=== PATIENT | female | born 1985 | race Caucasian/White ===

== ENCOUNTER 2023-05-04 15:10 | Emergency (ER) | payer BC, SELFPAY ==
[2023-05-04] VITALS (10 sets, daily range): BP systolic 121–141; BP diastolic 60–87; PULSE 67–89; RESP 14–20; TEMP 37.1–37.3; O2SAT 98–100
--- NOTE | ~2023-05-04 | US_ITS ---
EXAMINATION: US OB <=14 wk fetus w TV DATE: 05/04/2023 19:45 INDICATION: Left adnexal pain during first trimester . TECHNIQUE: Real-time pelvic ultrasound utilizing both a transvaginal and transabdominal probe was pe rformed. The interpreting radiologist was not present for the study. COMPARISON: None. FINDINGS: The uterus measures 7.4 x 3.9 x 4.5 cm. There is an intrauterine gestational sac. A yolk sac and fet al pole are identified. The crown rump length measures 4.5 mm, which correlates with an estimated ges tational age of 6 weeks and 1 days. heart motion is identified measuring 124 beats per minute ( bpm) by M-mode Doppler. There is some refraction artifact extending posteriorly from a secti on scar along the anterior lower uterine segment. The right ovary measures 2.6 x 2.0 x 1.8 cm. Vascular flow identified in the right ovary on color Dop pler. The left ovary is not visualized. There is no free fluid in the pelvis. IMPRESSION: 1. Single living fetus with heart rate of 124 bpm. 2. Gestational age by ultrasound of 6 weeks 1 day(s) +/- 3 day(s) with ultrasound estimated date of delivery (CLAUDIA) of 12/28/2023. Reviewed, dictated and finalized at location [facility] IMPRESSION: 1. Single living fetus with heart rate of 124 bpm. 2. Gestational age by ultrasound of 6 weeks 1 day(s) +/- 3 day(s) with ultraso und estimated date of delivery (CLAUDIA) of 12/28/2023.
[2023-05-04 16:45] LABS: Basophils Percent Auto 0.2 % (0.2-1.2); Eosinophils Percent Auto 0.1 % (0-4.4); Hematocrit 35.2 % (37.0-47.0); Hemoglobin 11.7 g/dL (12.0-15.0); Immature Granulocyte Absolute 0.03 K/mm3 (0.00-0.031); Immature Granulocyte Percent A 0.4 % (0-0.5); Lymphocytes Absolute Auto 0.74 K/mm3 (0.9-3.2); Mean Corpuscular HGB Conc 33.2 g/dl (32-36); Mean Corpuscular Hemoglobin 29.4 pg (26-34); Mean Corpuscular Volume 88.4 fl (80-100); Mean Platelet Volume 9.7 fl (7.4-10.4); Monocytes Absolute Auto 0.5 K/mm3 (0.1-0.6); Monocytes Percent Auto 5.8 % (2.6-8.5); Neutrophils Percent Auto 84.5 % (45.5-73.1); Platelet Count Result 264 k/mm3 (150-375); Red Blood Count 3.98 M/mm3 (4.2-5.4); White Blood Count 8.3 K/mm3 (4.5-10.0)
[2023-05-04 16:56] LABS: Alanine Aminotransferase 34 U/L (6-35); Albumin Level 3.9 g/dL (3.5-5.1); Alkaline Phosphatase 64 U/L (38-126); Anion Gap 9 mmol/L (8-16); Aspartate Amino Transferase 28 U/L (14-36); Bilirubin,Total 0.4 mg/dL (0.2-1.3); Blood Urea Nitrogen 11 mg/dL (7-17); Calcium 9.1 mg/dL (8.4-10.2); Carbon Dioxide 21 mmol/L (22-30); Chloride 104 mmol/L (98-107); Estimated CRCL calculation 139 ml/min; Estimated Glomerular Filt Rate > 60; Glucose 95 mg/dL (65-110); Lipase 50 U/L (23-300); Potassium 3.6 mmol/L (3.4-5.0); Sodium 134 mmol/L (137-145)
[2023-05-04 16:56] LABS: Appearance Urine Clear (Clear); Bilirubin Urine Negative (Negative); Blood Urine Negative (Negative); Color Urine Yellow (Yellow); Glucose Urine UA Negative (Negative); Ketones Urine Negative (Negative); Leukocyte Esterase Ur Negative LEU/UL (Negative); Nitrate Urine Negative (Negative); Protein Urine Negative (Negative); Specific Grav Ur 1.003 (1.001-1.035); Urobilinogen Urine 0.2 mg/dL (<2.0)
[2023-05-04 17:08] LABS: Add Urine Microscopic? NO
--- NOTE | 2023-05-04 19:45 | ED.GENADULT ---
HPI - General Adult General Chief complaint: Abdominal Pain Stated complaint: abdominal & back pain Time Seen by Provider: 05/04/23 15:43 History of Present Illness HPI narrative: patient is a 37-year-old female who presents ER with reports of body aches and abdominal pain. Patient tested positive today for COVID after she began having fevers and feeling unwell. She reports 4 days ago she took a positive test on her last menstrual period was on 03/23/23. No vaginal bleeding or vaginal discharge. No urinary frequency urgency or dysuria. She has mild nausea. No emesis. Reports sinus congestion sore throat. No cough. . Related Data Allergies Allergy/AdvReac Type Severity Reaction Status Date / Time Penicillins Allergy Anaphylactic Verified 05/04/23 15:13 Shock Sulfa (Sulfonamide Allergy Anaphylactic Verified 05/04/23 15:13 Antibiotics) Shock Review of Systems Review of Systems: All systems reviewed & are unremarkable except as noted in HPI and below Constitutional: Constitutional: Reports chills, Reports fatigue and Reports fever(s) ENT: Reports nasal congestion and Reports sore throat Cardiovascular: Cardiovascular: Reports no additional cardiovascular complaints Respiratory: Respiratory: Reports no additional respiratory complaints Gastrointestinal: Gastrointestinal: Reports abdominal pain, Reports nausea and Denies vomiting Genitourinary: Genitourinary: Reports no additional female genitourinary complaints Exam Narrative: GENERAL: Fatigued-appearing, well-nourished, and in no acute distress. HEAD: Normocephalic, atraumatic. ENT: Mucous membranes moist. NECK: Supple. CHEST: Clear to auscultation. No respiratory distress. HEART: Regular rate and rhythm. Normal peripheral pulses. ABDOMEN: Soft, mildly tender to palpation left adnexal region, nondistended. EXTREMITIES: Normal range of motion. No edema. SKIN: Warm, dry, no rash. NEURO: Alert and oriented x3. PSYCH: Normal mood and affect. Course Course Emergency Course: Patient will get 1L of fluid for hydration. Lab work unremarkable. Will start Paxlovid and antiemetics for home. No ectopic. Vital Signs Vital signs: Vital Signs Temperature 98.7 F 05/04/23 15:25 Pulse Rate 89 05/04/23 15:25 Respiratory Rate 20 05/04/23 15:25 Blood Pressure 123/69 05/04/23 15:25 Pulse Oximetry 98 05/04/23 15:25 Oxygen Delivery Room Air 05/04/23 15:25 Temperature 98.7 F 05/04/23 15:25 Pulse Rate 73 05/04/23 17:31 Respiratory Rate 16 05/04/23 17:31 Blood Pressure 132/77 05/04/23 17:31 Pulse Oximetry 100 05/04/23 17:31 Oxygen Delivery Room Air 05/04/23 15:25 Medical Decision Making Vital Signs Vital Signs: Vital Signs Temperature 98.7 F 05/04/23 15:25 Pulse Rate 89 05/04/23 15:25 Respiratory Rate 20 05/04/23 15:25 Blood Pressure 123/69 05/04/23 15:25 Pulse Oximetry 98 05/04/23 15:25 Oxygen Delivery Room Air 05/04/23 15:25 Temperature 98.7 F 05/04/23 15:25 Pulse Rate 73 05/04/23 17:31 Respiratory Rate 16 05/04/23 17:31 Blood Pressure 132/77 05/04/23 17:31 Pulse Oximetry 100 05/04/23 17:31 Oxygen Delivery Room Air 05/04/23 15:25 Lab Data 05/04/23 16:31 05/04/23 16:31 Labs: Lab Results 05/04/23 05/04/23 Range/Units 16:31 16:44 WBC 8.3 (4.5-10.0) K/mm3 RBC 3.98 L (4.2-5.4) M/mm3 Hgb 11.7 L (12.0-15.0) g/dL Hct 35.2 L (37.0-47.0) % MCV 88.4 (80-100) fl MCH 29.4 (26-34) pg MCHC 33.2 (32-36) g/dl RDW 13.0 (11.5-14.5) % Plt Count 264 (150-375) k/mm3 MPV 9.7 (7.4-10.4) fl Immature Gran % (Auto) 0.4 (0-0.5) % Neut % (Auto) 84.5 H (45.5-73.1) % Lymph % (Auto) 9.0 L (18.3-44.2) % [place] % (Auto) 5.8 (2.6-8.5) % Eos % (Auto) 0.1 (0-4.4) % Baso % (Auto) 0.2 (0.2-1.2) % Lymph # (Auto) 0.74 L (0.9-3.2) K/mm3 [place] # (Auto) 0.5 (0.1-0.
[2023-05-04] MEDS: SODIUM CHLORIDE 0.9% IV 1,000 ML 999 ML IV CONT (20:26)
[2023-05-04] MEDS: ACETAMINOPHEN 325 MG TABLET 650 MG PO (20:31)
== END 2023-05-04 21:13 | disposition home or self-care (01) ==
PROVIDERS: Emergency Provider Emergency Medicine
DX: O98.511 Other viral diseases complicating pregnancy, first trimester (principal); U07.1 COVID-19; Z3A.01 Less than 8 weeks gestation of pregnancy
CPT/HCPCS: 36415; 76801; 76817; 80053; 81003; 81025; 83690; 84702; 85025; 96360; 99284; A9270; J7030

== ENCOUNTER 2023-10-20 07:52 | Observation (INO) | payer BC, SELFPAY ==
[2023-10-20 08:43] VITALS: BP 140/81; PULSE 104
[2023-10-20 08:44] VITALS: RESP 18; TEMP 37.1
[2023-10-20 08:53] VITALS: BMI 38.2
--- NOTE | 2023-10-20 08:53 | OBADM ---
This patient, Lise Calderon, admitted to the OB room OB Post 116 for observation. Patient/family oriented to hospital policies and general routines including ID bracelet, bed and alarms, visiting hours, pain management, procedures, bathroom and other care routines, personal items, smoking policy, room service/diet, and visiting hours. Patient/Family are encouraged to report perceived risks to care and to ask questions if they do not understand what they are told or what they should do.
[2023-10-20 08:58] LABS: Basophils Percent Auto 0.2 % (0.2-1.2); Eosinophils Percent Auto 0.1 % (0-4.4); Hematocrit 31.8 % (37.0-47.0); Hemoglobin 10.6 g/dL (12.0-15.0); Immature Granulocyte Absolute 0.07 K/mm3 (0.00-0.031); Immature Granulocyte Percent A 0.7 % (0-0.5); Lymphocytes Absolute Auto 0.84 K/mm3 (0.9-3.2); Lymphocytes Percent Auto 8.1 % (18.3-44.2); Mean Corpuscular HGB Conc 33.3 g/dl (32-36); Mean Corpuscular Hemoglobin 29.4 pg (26-34); Mean Corpuscular Volume 88.1 fl (80-100); Mean Platelet Volume 9.2 fl (7.4-10.4); Monocytes Absolute Auto 0.5 K/mm3 (0.1-0.6); Monocytes Percent Auto 5.2 % (2.6-8.5); Neutrophils Absolute Auto 8.9 K/mm3 (1.3-6.7); Neutrophils Percent Auto 85.7 % (45.5-73.1); Platelet Count Result 213 k/mm3 (150-375); Red Blood Count 3.61 M/mm3 (4.2-5.4); Red Cell Distribution Width 14.9 % (11.5-14.5); White Blood Count 10.4 K/mm3 (4.5-10.0)
[2023-10-20 09:00] VITALS: BP 126/81; PULSE 100
[2023-10-20 09:02] VITALS: BP 126/81; PULSE 100
[2023-10-20 09:12] VITALS: PULSE 98; O2SAT 99
[2023-10-20 09:25] LABS: Strep Group A RT-PCR NOT DETECTED (Negative)
[2023-10-20 09:34] LABS: Influenza A QL RT-PCR Negative (Negative); Influenza B QL RT-PCR Negative (Negative); RSV RNA, RT-PCR Negative (Negative); SARS-CoV-2 RNA PCR Positive (Negative)
--- NOTE | 2023-10-20 09:41 | PC.NURSE ---
Pepe Meyer CNM informed pt is positive for COVID. Reviewed CBC results. Informed NST is reactive. OK to discharge to home.
--- NOTE | 2023-10-23 09:13 | P.PNOB_ITS ---
OB - Triage/Final Diagnosis Visit Information Date of evaluation: 10/20/23 Reason for evaluation: other (sore throat) Comments/Additional reasons for admission: I have assessed the risk for this patient, Lise Calderon, and determined that she would benefit from observation care. Evaluation Laboratory results: Laboratory Tests 10/20/23 08:32 WBC 10.4 H RBC 3.61 L Hgb 10.6 L Hct 31.8 L MCV 88.1 MCH 29.4 MCHC 33.3 RDW 14.9 H Plt Count 213 MPV 9.2 Immature Gran % (Auto) 0.7 H Neut % (Auto) 85.7 H Lymph % (Auto) 8.1 L [place] % (Auto) 5.2 Eos % (Auto) 0.1 Baso % (Auto) 0.2 Lymph # (Auto) 0.84 L [place] # (Auto) 0.5 Eos # (Auto) 0.0 Baso # (Auto) 0.0 Abs Immat Gran (auto) 0.07 H Absolute Neuts (auto) 8.9 H Absolute Nucleated RBC 0.000 Nucleated RBC % 0.0 Influenza A (RT-PCR) Negative Influenza B (RT-PCR) Negative RSV (RT-PCR) Negative SARS-CoV-2 RNA (RT-PCR) Positive A Group A Strep (PCR) Not detected
== END 2023-10-20 10:49 | disposition home or self-care (01) ==
PROVIDERS: Advanced Practice Midwife; Admitting Provider Obstetrics & Gynecology; PCP Family Medicine; Visit Provider Obstetrics & Gynecology
DX: O26.893 Other specified pregnancy related conditions, third trimester (principal); J02.9 Acute pharyngitis, unspecified; Z3A.30 30 weeks gestation of pregnancy; Z20.822 Contact with and (suspected) exposure to COVID-19
CPT/HCPCS: 36415; 85025; 87637; 87651; G0378; G0379

== ENCOUNTER 2023-11-06 05:30 | Observation (INO) | payer BC, SELFPAY ==
[2023-11-06 06:00] VITALS: BP 150/88; PULSE 107
--- NOTE | 2023-11-06 06:00 | OBADM ---
This patient, Lise Calderon, admitted to the OB room OB Post 115 for observation. Patient/family oriented to hospital policies and general routines including ID bracelet, bed and alarms, visiting hours, pain management, procedures, bathroom and other care routines, personal items, smoking policy, room service/diet, and visiting hours. Patient/Family are encouraged to report perceived risks to care and to ask questions if they do not understand what they are told or what they should do.
[2023-11-06 06:21] VITALS: BP 133/75; PULSE 97
[2023-11-06 06:31] VITALS: BP 129/84; PULSE 87
[2023-11-06 07:00] VITALS: BP 133/82; PULSE 81
[2023-11-06 07:05] LABS: Add Urine Microscopic? YES; Appearance Urine Clear (Clear); Bacteria Urine None Seen /hpf; Bilirubin Urine Negative (Negative); Blood Urine Negative (Negative); Color Urine Yellow (Yellow); Glucose Urine UA Negative (Negative); Ketones Urine 1+ mg/dL (Negative); Leukocyte Esterase Ur Trace LEU/UL (Negative); Need Manual Microscopic Reviewed; Nitrate Urine Negative (Negative); Non Pathogenic Casts 0-2; Protein Urine Negative (Negative); RBC Urine 0-2 /hpf (0-2); Specific Grav Ur 1.007 (1.001-1.035); Squamous Epithelial Cell Urine Occasional /hpf (Few); Urobilinogen Urine 0.2 mg/dL (<2.0); WBC Urine 0-5 /hpf (0-3)
[2023-11-06 07:47] VITALS: BMI 36.3
--- NOTE | 2023-11-29 21:45 | PM.OBTRLD ---
OB - Triage/Final Diagnosis Visit Information Comments/Additional reasons for admission: I have assessed the risk for this patient, Lise Calderon, and determined that she would benefit from observation care. Evaluation Laboratory results: Laboratory Tests 11/06/23 06:26 Urine Color Yellow Urine Appearance Clear Urine pH 6.0 Ur Specific [place] 1.007 Urine Protein Negative Urine Glucose (UA) Negative Urine Ketones 1+ H Ur Blood (Man) Negative Urine Nitrate Negative Urine Bilirubin Negative Urine Urobilinogen 0.2 Add Ur Microanalysis Reviewed Leukocyte Esterase Rfl Trace H Urine RBC 0-2 Urine WBC 0-5 Ur Squamous Epith Cells Occasional Urine Bacteria None seen Urine Casts 0-2 Final Diagnosis (1) False labor: Code(s): O47.9 - False labor, unspecified Status: Acute
--- NOTE | 2023-11-29 21:50 | PM.OBTRLD ---
OB - Triage/Final Diagnosis Visit Information Comments/Additional reasons for admission: I have assessed the risk for this patient, Lise Calderon, and determined that she would benefit from observation care. Evaluation Laboratory results: Laboratory Tests 11/06/23 06:26 Urine Color Yellow Urine Appearance Clear Urine pH 6.0 Ur Specific [place] 1.007 Urine Protein Negative Urine Glucose (UA) Negative Urine Ketones 1+ H Ur Blood (Man) Negative Urine Nitrate Negative Urine Bilirubin Negative Urine Urobilinogen 0.2 Add Ur Microanalysis Reviewed Leukocyte Esterase Rfl Trace H Urine RBC 0-2 Urine WBC 0-5 Ur Squamous Epith Cells Occasional Urine Bacteria None seen Urine Casts 0-2 Final Diagnosis (1) False labor: Code(s): O47.9 - False labor, unspecified Status: Acute
== END 2023-11-06 08:03 | disposition home or self-care (01) ==
PROVIDERS: Admitting Provider Obstetrics & Gynecology; Visit Provider Obstetrics & Gynecology
DX: O47.9 False labor, unspecified (principal)
CPT/HCPCS: 81001; G0378; G0379

== ENCOUNTER 2023-11-07 00:49 | Observation (INO) | payer BC, SELFPAY ==
[2023-11-07] VITALS (30 sets, daily range): BP systolic 123–127; BP diastolic 66–76; PULSE 73–102; O2SAT 93–100; BMI 36.3
--- NOTE | 2023-11-07 00:49 | OBADM ---
This patient, iLse Calderon, admitted to the OB room OB Post 117 for observation. Patient/family oriented to hospital policies and general routines including ID bracelet, bed and alarms, visiting hours, pain management, procedures, bathroom and other care routines, personal items, smoking policy, room service/diet, and visiting hours. Patient/Family are encouraged to report perceived risks to care and to ask questions if they do not understand what they are told or what they should do.
[2023-11-07 01:23] LABS: Add Urine Microscopic? YES; Appearance Urine Clear (Clear); Bacteria Urine None Seen /hpf; Bilirubin Urine Negative (Negative); Blood Urine Negative (Negative); Color Urine Yellow (Yellow); Glucose Urine UA Negative (Negative); Ketones Urine Negative (Negative); Leukocyte Esterase Ur Trace LEU/UL (Negative); Nitrate Urine Negative (Negative); Non Pathogenic Casts 0-2; Protein Urine Negative (Negative); RBC Urine 0-2 /hpf (0-2); Specific Grav Ur 1.007 (1.001-1.035); Squamous Epithelial Cell Urine None Seen /hpf (Few); Urobilinogen Urine 0.2 mg/dL (<2.0); WBC Urine 0-5 /hpf (0-3); pH Urine 6.5 (5.0-9.0)
[2023-11-07 01:25] LABS: Glucose Point of Care 83 mg/dl (65-105)
[2023-11-07 02:12] LABS: OBXCEM ROM Plus Negative
[2023-11-07] MEDS: TERBUTALINE SULFATE 1 MG/ML VIAL 0.25 MG SUB-Q (02:31)
--- NOTE | 2023-12-01 11:59 | P.PNOB_ITS ---
OB - Triage/Final Diagnosis Visit Information Comments/Additional reasons for admission: I have assessed the risk for this patient, Lise Calderon, and determined that she would benefit from observation care. Evaluation Laboratory results: Laboratory Tests 11/07/23 11/07/23 11/07/23 01:02 01:18 02:05 POC Capillary Glucose 83 Urine Color Yellow Urine Appearance Clear Urine pH 6.5 Ur Specific [place] 1.007 Urine Protein Negative Urine Glucose (UA) Negative Urine Ketones Negative Ur Blood (Man) Negative Urine Nitrate Negative Urine Bilirubin Negative Urine Urobilinogen 0.2 Ur Leukocyte Esterase Trace H Urine RBC 0-2 Urine WBC 0-5 Ur Squamous Epith Cells None seen Urine Bacteria None seen Urine Casts 0-2 Membranes Rupture Rom plus negative Membranes Rup Com Yes Final Diagnosis (1) False labor: Code(s): O47.9 - False labor, unspecified Status: Acute
== END 2023-11-07 03:30 ==
PROVIDERS: Admitting Provider Obstetrics & Gynecology; Visit Provider Obstetrics & Gynecology
DX: O47.03 False labor before 37 completed weeks of gestation, third trimester (principal); Z3A.32 32 weeks gestation of pregnancy
CPT/HCPCS: 81001; 82948; 84112; 87086; 87088; 96372; G0378; G0379; J3105

== ENCOUNTER 2023-11-25 07:54 | Outpatient (CLI) | payer BC, SELFPAY ==
[2023-11-25] VITALS (28 sets, daily range): BP systolic 115–145; BP diastolic 66–84; PULSE 76–93; O2SAT 94–98; BMI 36.0
[2023-11-25 08:56] LABS: Basophils Percent Auto 0.3 % (0.2-1.2); Eosinophils Percent Auto 0.3 % (0-4.4); Hematocrit 34.8 % (37.0-47.0); Hemoglobin 11.4 g/dL (12.0-15.0); Immature Granulocyte Absolute 0.03 K/mm3 (0.00-0.031); Immature Granulocyte Percent A 0.3 % (0-0.5); Lymphocytes Absolute Auto 1.53 K/mm3 (0.9-3.2); Lymphocytes Percent Auto 14.1 % (18.3-44.2); Mean Corpuscular HGB Conc 32.8 g/dl (32-36); Mean Corpuscular Hemoglobin 29.5 pg (26-34); Mean Corpuscular Volume 89.9 fl (80-100); Mean Platelet Volume 9.5 fl (7.4-10.4); Monocytes Absolute Auto 0.5 K/mm3 (0.1-0.6); Monocytes Percent Auto 4.8 % (2.6-8.5); Neutrophils Absolute Auto 8.7 K/mm3 (1.3-6.7); Neutrophils Percent Auto 80.2 % (45.5-73.1); Platelet Count Result 230 k/mm3 (150-375); Red Blood Count 3.87 M/mm3 (4.2-5.4); Red Cell Distribution Width 14.9 % (11.5-14.5); White Blood Count 10.8 K/mm3 (4.5-10.0)
[2023-11-25 09:04] LABS: Creatinine Urine 22.1 mg/dL; Total Protein Urine Random 14 mg/dL; Ur Ttl Prot Creatinine Ratio 0.63 mg/mg (0-0.20)
[2023-11-25 09:05] LABS: Alanine Aminotransferase 19 U/L (6-35); Albumin Level 3.3 g/dL (3.5-5.1); Alkaline Phosphatase 111 U/L (38-126); Anion Gap 6 mmol/L (4-12); Aspartate Amino Transferase 19 U/L (14-36); Bilirubin,Total 0.1 mg/dL (0.2-1.3); Blood Urea Nitrogen 15 mg/dL (7-17); Carbon Dioxide 21 mmol/L (22-30); Chloride 106 mmol/L (98-107); Estimated Glomerular Filt Rate > 60; Glucose 119 mg/dL (65-110); Potassium 3.7 mmol/L (3.4-5.0); Sodium 133 mmol/L (137-145); Uric Acid 3.5 mg/dL (2.5-7.5)
--- NOTE | 2023-11-25 09:05 | PC.NURSE ---
Dr. Herzog informed of this 35 wk with hx of previous C/S x's 2 and gest. hypertension and GDM here with c/o headache that she has had for most of the week, blurred vision and reported BP of 140/100 from home, States she felt her heart racing throughout the night. Discussed BP's here. Order received for pain meds while waiting for labs to come back.
[2023-11-25 09:34] LABS: Add Urine Microscopic? YES; Appearance Urine Clear (Clear); Bacteria Urine None Seen /hpf; Bilirubin Urine Negative (Negative); Blood Urine Negative (Negative); Color Urine Yellow (Yellow); Glucose Urine UA Negative (Negative); Ketones Urine Trace mg/dL (Negative); Leukocyte Esterase Ur Trace LEU/UL (Negative); Need Manual Microscopic Reviewed; Nitrate Urine Negative (Negative); Non Pathogenic Casts 0-2; Protein Urine Negative (Negative); RBC Urine 0-2 /hpf (0-2); Specific Grav Ur 1.007 (1.001-1.035); Squamous Epithelial Cell Urine Occasional /hpf (Few); Urobilinogen Urine 0.2 mg/dL (<2.0); WBC Urine 0-5 /hpf (0-3); pH Urine 6.5 (5.0-9.0)
[2023-11-25] MEDS: ACETAMINOPHEN 500 MG TABLET 1000 MG PO (09:53)
--- NOTE | 2023-11-25 09:53 | PC.NURSE ---
Pt states she had a nap and her headache is down to a 2 and the blurred vision has resolved. Pt given menu and encouraged to order.
[2023-11-25] MEDS: CAFFEINE 200 MG TABLET PO (09:55)
--- NOTE | 2023-11-25 10:40 | PC.NURSE ---
Pepe Meyer CNM on unit and updated on BP's, lab results including total protein creatinine ratio of 0.63 and negative for protein on UA. Order received for pt's insulin to give when her tray comes. Pt may go home after she eats.
--- NOTE | 2023-11-25 11:35 | PC.NURSE ---
Pt's tray still hasn't arrived. Called dietary. Tray was already suppose to have been delivered. Tray reordered. Gave pt the option of going home to take her insulin and eat at home. Pt wants to eat before leaving. Pt asked about getting the Flu, Tdap, and RSV vaccines. Informed I could get an order to give her the Tdap, but she will need to go to her pharmacy for the RSV and flu vaccines.
--- NOTE | 2023-11-25 12:05 | PC.NURSE ---
Pt's food still not here. Pt agreeable to a sandwich from the refrigerator.
[2023-11-25] MEDS: INSULIN HUMAN NPH (*BKC) 100 UNITS/ML SUB-Q (12:08)
[2023-11-25] MEDS: TETANUS,DIPHTHERIA,AC PERTUSSIS ADULT (0.5 ML) BOOSTRIX IM (12:10)
--- NOTE | 2023-11-25 12:22 | PC.NURSE ---
Pt's lunch tray arrived. Pt will eat and stop out at desk before going home.
== END 2023-11-25 12:42 | disposition home or self-care (01) ==
LOC: ANHOBOP 07:57 → ANHOBPP 07:57
PROVIDERS: Obstetrics & Gynecology; Visit Provider Obstetrics & Gynecology
DX: O13.9 Gestational [pregnancy-induced] hypertension without significant proteinuria, unspecified trimester (principal); Z3A.00 Weeks of gestation of pregnancy not specified
CPT/HCPCS: 36415; 59025; 80053; 81001; 82570; 84156; 84550; 85025; 90471; 90715; 99199; A9270; J1815

== ENCOUNTER 2023-12-01 13:20 | Outpatient (CLI) | payer BC, SELFPAY ==
[2023-12-01] VITALS (10 sets, daily range): BP systolic 123–145; BP diastolic 77–91; PULSE 70–87; RESP 18–20; TEMP 36.6–36.7; BMI 36.5
[2023-12-01] MEDS: CAFFEINE 200 MG TABLET PO (14:46)
[2023-12-01 14:55] LABS: Basophils Percent Auto 0.2 % (0.2-1.2); Eosinophils Percent Auto 0.3 % (0-4.4); Hematocrit 33.8 % (37.0-47.0); Hemoglobin 11.4 g/dL (12.0-15.0); Immature Granulocyte Absolute 0.05 K/mm3 (0.00-0.031); Immature Granulocyte Percent A 0.6 % (0-0.5); Lymphocytes Percent Auto 17.1 % (18.3-44.2); Mean Corpuscular HGB Conc 33.7 g/dl (32-36); Mean Corpuscular Volume 88.9 fl (80-100); Mean Platelet Volume 9.5 fl (7.4-10.4); Monocytes Absolute Auto 0.5 K/mm3 (0.1-0.6); Monocytes Percent Auto 5.1 % (2.6-8.5); Neutrophils Absolute Auto 6.7 K/mm3 (1.3-6.7); Neutrophils Percent Auto 76.7 % (45.5-73.1); Platelet Count Result 230 k/mm3 (150-375); Red Cell Distribution Width 14.7 % (11.5-14.5); White Blood Count 8.8 K/mm3 (4.5-10.0)
[2023-12-01] MEDS: ACETAMINOPHEN 500 MG TABLET 1000 MG PO (15:01)
[2023-12-01 15:04] LABS: Creatinine Urine 33.5 mg/dL; Total Protein Urine Random 9 mg/dL; Ur Ttl Prot Creatinine Ratio 0.27 mg/mg (0-0.20)
[2023-12-01 15:16] LABS: Add Urine Microscopic? YES; Alanine Aminotransferase 19 U/L (6-35); Albumin Level 3.5 g/dL (3.5-5.1); Alkaline Phosphatase 133 U/L (38-126); Anion Gap 11 mmol/L (4-12); Appearance Urine Clear (Clear); Aspartate Amino Transferase 21 U/L (14-36); Bacteria Urine None Seen /hpf; Bilirubin Urine Negative (Negative); Bilirubin,Total 0.2 mg/dL (0.2-1.3); Blood Urea Nitrogen 12 mg/dL (7-17); Blood Urine Negative (Negative); Calcium 8.9 mg/dL (8.4-10.2); Carbon Dioxide 17 mmol/L (22-30); Chloride 106 mmol/L (98-107); Color Urine Yellow (Yellow); Estimated Glomerular Filt Rate > 60; Glucose 78 mg/dL (65-110); Glucose Urine UA Negative (Negative); Ketones Urine 1+ mg/dL (Negative); Leukocyte Esterase Ur Trace LEU/UL (Negative); Nitrate Urine Negative (Negative); Non Pathogenic Casts 0-2; Protein Urine Negative (Negative); RBC Urine 0-2 /hpf (0-2); Sodium 134 mmol/L (137-145); Specific Grav Ur 1.008 (1.001-1.035); Squamous Epithelial Cell Urine Occasional /hpf (Few); Uric Acid 3.8 mg/dL (2.5-7.5); Urobilinogen Urine 0.2 mg/dL (<2.0); WBC Urine 0-5 /hpf (0-3); pH Urine 6.5 (5.0-9.0)
== END 2023-12-01 16:27 | disposition home or self-care (01) ==
LOC: ANHOBOP 14:07 → ANHLDR 14:08
PROVIDERS: Visit Provider Obstetrics & Gynecology
DX: O13.9 Gestational [pregnancy-induced] hypertension without significant proteinuria, unspecified trimester (principal)
CPT/HCPCS: 36415; 59025; 80053; 81001; 82570; 84156; 84550; 85025; 99199; A9270

== ENCOUNTER 2023-12-06 15:58 | Outpatient (CLI) | payer BC, SELFPAY ==
[2023-12-06 16:25] LABS: Hematocrit 35.7 % (37.0-47.0); Hemoglobin 12.1 g/dL (12.0-15.0); Mean Corpuscular HGB Conc 33.9 g/dl (32-36); Mean Corpuscular Hemoglobin 30.3 pg (26-34); Mean Corpuscular Volume 89.3 fl (80-100); Mean Platelet Volume 9.3 fl (7.4-10.4); Platelet Count Result 236 k/mm3 (150-375); Red Cell Distribution Width 14.8 % (11.5-14.5); White Blood Count 10.4 K/mm3 (4.5-10.0)
[2023-12-06 17:23] LABS: HIV 1/2 Ab P24 Ag Result Negative (Negative)
[2023-12-06 18:32] LABS: Rapid Plasma Reagin Non-Reactive (NonReactive)
== END 2023-12-06 15:59 | disposition home or self-care (01) ==
LOC: ANHLAB 16:03
PROVIDERS: Visit Provider Obstetrics & Gynecology
DX: Z01.818 Encounter for other preprocedural examination (principal)
CPT/HCPCS: 36415; 85027; 86592; 86703; 86850; 86900; 86901; G0432

== ENCOUNTER 2023-12-07 10:03 | Inpatient (IN) | payer BC, SELFPAY ==
[2023-12-07] VITALS (70 sets, daily range): BP systolic 98–164; BP diastolic 58–98; PULSE 31–98; RESP 14–18; TEMP 36.1–36.9; O2SAT 97–100; BMI 35.3
[2023-12-07] MEDS: ACETAMINOPHEN 500 MG TABLET 1000 MG PO (10:43)
[2023-12-07] MEDS: LACTATED RINGERS 1,000 ML 125 ML IV CONT (11:06)
--- NOTE | 2023-12-07 11:33 | LDADM ---
This patient, Lise Calderon, was admitted to Labor/Delivery 119 on 12/07/23 at 10:03. Plans for repeat section with bilateral salpingectomy were discussed with patient. Patient/family oriented to hospital policies and general routines including ID bracelet, bed and alarms, visiting hours, pain management, procedures, bathroom and other care routines, personal items, smoking policy, room service/diet and guest tray routines, security routines, and visiting hours. Patient/Family are encouraged to report perceived risks to care and to ask questions if they do not understand what they are told or what they should do. See OBIX for further documentation.
[2023-12-07] MEDS: ONDANSETRON INJ 4 MG/2 ML VIAL IV PUSH (11:41)
[2023-12-07] MEDS: FAMOTIDINE 20 MG/2 ML VIAL IV PUSH (11:41)
--- NOTE | 2023-12-07 11:42 | PM.IMHP ---
H&P: HPI History of Present Illness Date/Time: 12/07/23 11:42 Chief Complaint: Term Narrative: 38-year-old multiparous female at term with previous deliveries and unwanted fertility. We agreed to perform repeat delivery and bilateral salpingectomy. The patient understands the details of the procedure. The procedure has been explained in detail. She understands the risks. She understands that injuries may occur that result in hospitalization, more surgery, and severe illness. She understands risk of hemorrhage and infection. She denies any chest pain or shortness of breath. She denies any nausea, vomiting, fever, chills. Review of Systems Review of Systems: All systems reviewed & are unremarkable except as noted in HPI and below Constitutional: Constitutional: Denies chills, Denies fatigue, Denies fever(s) and Denies weakness Eyes: Eyes: Denies blurry vision, Denies change in vision, Denies loss of peripheral vision, Denies loss of vision, Denies other visual disturbances and Denies eye pain ENT: Denies vertigo, Denies dizziness, Denies hearing loss, Denies mouth pain, Denies nasal obstruction, Denies neck mass and Denies neck pain Cardiovascular: Cardiovascular: Denies chest pain, Denies diaphoresis, Denies syncope, Denies leg edema and Denies dyspnea Respiratory: Respiratory: Denies chest congestion, Denies cough, Denies hemoptysis, Denies dyspnea and Denies wheezing Gastrointestinal: Gastrointestinal: Denies abdominal pain, Denies constipation, Denies diarrhea, Denies nausea and Denies vomiting Genitourinary: Genitourinary: Denies hematuria, Denies change in libido, Denies nocturia, Denies genital lesions, Denies flank pain and Denies urinary urgency Musculoskeletal: Musculoskeletal: Denies abnormal gait, Denies back pain, Denies myalgias, Denies arthralgias, Denies joint swelling, Denies muscle weakness and Denies neck pain Integumentary/Breasts: Skin/Breast: Denies swelling, Denies breast pain, Denies breast mass, Denies dry skin, Denies nipple discharge, Denies unusual bruising and Denies jaundice Neurologic: Denies Neuro-related abnormal movements, Denies Abnormal speech present, Denies abnormal gait, Denies behavioral changes, Denies confusion, Denies vertigo, Denies dizziness, Denies syncope, Denies loss of vision, Denies memory loss, Denies convulsions and Denies weakness Psychiatric: Psychiatric: Denies abnormal sleep pattern, Denies behavioral changes, Denies change in libido, Denies confusion, Denies depression, Denies anhedonia and Denies memory loss Endocrine: Endocrine: Reports no additional endocrine complaints, Denies change in libido and Denies fatigue Hematologic/Lymphatic: Hematologic/Lymphatic: Reports no additional hematologic/lymphatic complaints Allergic/Immunologic: Allergic/Immunologic: Reports no additional allergic/immunologic complaints and Denies wheezing [facility] Family History Family History (Updated 12/01/23 @ 16:34 by Cora Ibarra RN) Mother Diabetes mellitus Father Parkinsons disease Hypertension Grandparent Malignant neoplasm of prostate Grandparent Alzheimer dementia Grandparent Parkinsons disease Sibling ADHD Social History Social History Smoking status: Never smoker Substance use: never Do You Feel Safe in your Home?: Yes Lack of Transportation: No Lack of Food: Sometimes True Current Housing: I Have Housing Concerned About Future Housing: No Difficulty Paying Gas/Electric Bills: No Difficulty Paying for Meds: YES Currently Unemployed: No Education: Bachelor's Degree Difficulty w/ Childcare or Family Care: No Spiritual care concerns: No Meds Home Medications and Allergies Home Medications Medication Instructions Recorded Confirmed Type vit no.95-ferrous 1 tablet PO DAILY 10/20/23 12/07/23 History fumarate 28 mg-folic acid 800 mcg tablet () sertraline 100 mg tablet 100 mg
--- NOTE | 2023-12-07 11:44 | WPDHPUPDATE1 ---
History and Physical Update Update Date/Time: 12/07/23 11:44 History and Physical has been reviewed, including an updated exam of the patient. There are NO changes in the patient's condition. Risks, benefits, and alternatives have been discussed and questions answered. Patient agrees to proceed with procedure.
--- NOTE | 2023-12-07 11:49 | WPDANESEPPF ---
Anes - Initial Pre Proc Eval Procedure: Operation Date: 12/07/23 12:00 Proposed Procedures p Repeat Section - Bobby Herzog MD Date/Time: 12/07/23 11:49 Surgeon: Marcelino Tate MD Pre Op Diagnosis: Repeat Patient Data Age: 38 Gender: F Height: 1.6 m Weight: 90.4 kg Last Vital Signs Pulse 81 12/07/23 11:10 BP 136/83 12/07/23 11:10 O2 Del Method Room Air 12/07/23 10:56 Allergies Allergy/AdvReac Type Severity Reaction Status Date / Time amoxicillin Allergy Anaphylactic Verified 12/01/23 16:32 Shock azithromycin Allergy Swelling Verified 10/20/23 08:57 of Lip/Tongue/Throat hydrocortisone Allergy Hives Verified 12/01/23 16:32 levofloxacin Allergy Hives Verified 12/01/23 16:32 Penicillins Allergy Anaphylactic Verified 05/04/23 15:13 Shock prednisone Allergy Swelling Verified 10/20/23 08:57 of Lip/Tongue/Throat Sulfa (Sulfonamide Allergy Anaphylactic Verified 05/04/23 15:13 Antibiotics) Shock Home Medications Medication Instructions Recorded Confirmed Type vit no.95-ferrous 1 tablet PO DAILY 10/20/23 12/07/23 History fumarate 28 mg-folic acid 800 mcg tablet () sertraline 100 mg tablet 100 mg PO HS 10/20/23 12/07/23 History acetaminophen 500 mg tablet 1,000 mg PO Q6H PRN Pain 11/25/23 12/07/23 History aspirin 81 mg chewable tablet 81 mg PO DAILY 11/25/23 12/07/23 History insulin NPH isoph U-100 human 100 5 unit subcut BID 11/25/23 12/07/23 History unit/mL (3 mL) subcutaneous pen (Humulin N NPH U-100 Insulin KwikPen) magnesium 200 mg tablet 200 mg PO DAILY 11/25/23 12/07/23 History omeprazole 40 mg capsule,delayed 40 mg PO DAILY 11/25/23 12/07/23 History release Patient hx anesthesia problems: none Family hx anesthesia problems: none Results Review: All pre-operative results and documents have been reviewed as part of the pre-operative evaluation. [facility] Past Medical History Medical History Gestational diabetes Gestational hypertension Obesity Family History Family History Mother Diabetes mellitus Father Parkinsons disease Hypertension Grandparent Malignant neoplasm of prostate Grandparent Alzheimer dementia Grandparent Parkinsons disease Sibling ADHD Social History Social History Smoking status: Never smoker Substance use: never Do You Feel Safe in your Home?: Yes Lack of Transportation: No Lack of Food: Sometimes True Current Housing: I Have Housing Concerned About Future Housing: No Difficulty Paying Gas/Electric Bills: No Difficulty Paying for Meds: YES Currently Unemployed: No Education: Bachelor's Degree Difficulty w/ Childcare or Family Care: No Spiritual care concerns: No Anes - Eval Final PreProcedure Day of Procedure 12/07/23 11:49 Patient weight: obese Heart: regular rate and rhythm Lungs: clear to auscultation Airway: Mallampati scale class II Neurological: alert and oriented Last oral intake: >/= 8 hours ASA classification: III Emergent: no Anesthetic plan: proceed Anesthesia type and monitoring: regional spinal Results Review: All pre-operative results and documents have been reviewed as part of the pre-operative evaluation. Informed Consent: The patient's anesthetic plan and its attendant risks and benefits were discussed with the patient/family/POA. Questions were solicited and answers provided to the satisfaction of the patient/family/POA.
--- NOTE | 2023-12-07 11:57 | WPDANESEPPF ---
Anes - Initial Pre Proc Eval Procedure: Operation Date: 12/07/23 12:00 Proposed Procedures p Repeat Section - Bobby Herzog MD Date/Time: 12/07/23 11:57 Surgeon: Marcelino Tate MD Pre Op Diagnosis: Repeat Patient Data Age: 38 Gender: F Height: 1.6 m Weight: 90.4 kg Last Vital Signs Pulse 81 12/07/23 11:10 BP 136/83 12/07/23 11:10 O2 Del Method Room Air 12/07/23 10:56 Allergies Allergy/AdvReac Type Severity Reaction Status Date / Time amoxicillin Allergy Anaphylactic Verified 12/01/23 16:32 Shock azithromycin Allergy Swelling Verified 10/20/23 08:57 of Lip/Tongue/Throat hydrocortisone Allergy Hives Verified 12/01/23 16:32 levofloxacin Allergy Hives Verified 12/01/23 16:32 Penicillins Allergy Anaphylactic Verified 05/04/23 15:13 Shock prednisone Allergy Swelling Verified 10/20/23 08:57 of Lip/Tongue/Throat Sulfa (Sulfonamide Allergy Anaphylactic Verified 05/04/23 15:13 Antibiotics) Shock Home Medications Medication Instructions Recorded Confirmed Type vit no.95-ferrous 1 tablet PO DAILY 10/20/23 12/07/23 History fumarate 28 mg-folic acid 800 mcg tablet () sertraline 100 mg tablet 100 mg PO HS 10/20/23 12/07/23 History acetaminophen 500 mg tablet 1,000 mg PO Q6H PRN Pain 11/25/23 12/07/23 History aspirin 81 mg chewable tablet 81 mg PO DAILY 11/25/23 12/07/23 History insulin NPH isoph U-100 human 100 5 unit subcut BID 11/25/23 12/07/23 History unit/mL (3 mL) subcutaneous pen (Humulin N NPH U-100 Insulin KwikPen) magnesium 200 mg tablet 200 mg PO DAILY 11/25/23 12/07/23 History omeprazole 40 mg capsule,delayed 40 mg PO DAILY 11/25/23 12/07/23 History release Patient hx anesthesia problems: none Family hx anesthesia problems: none Results Review: All pre-operative results and documents have been reviewed as part of the pre-operative evaluation. [facility] Past Medical History Medical History Gestational diabetes Gestational hypertension Obesity Family History Family History Mother Diabetes mellitus Father Parkinsons disease Hypertension Grandparent Malignant neoplasm of prostate Grandparent Alzheimer dementia Grandparent Parkinsons disease Sibling ADHD Social History Social History Smoking status: Never smoker Substance use: never Do You Feel Safe in your Home?: Yes Lack of Transportation: No Lack of Food: Sometimes True Current Housing: I Have Housing Concerned About Future Housing: No Difficulty Paying Gas/Electric Bills: No Difficulty Paying for Meds: YES Currently Unemployed: No Education: Bachelor's Degree Difficulty w/ Childcare or Family Care: No Spiritual care concerns: No Anes - Eval Final PreProcedure Day of Procedure 12/07/23 11:57 Patient weight: obese Heart: regular rate and rhythm Lungs: clear to auscultation Airway: Mallampati scale class II Neurological: alert and oriented Last oral intake: >/= 8 hours ASA classification: III Emergent: no Anesthetic plan: proceed Anesthesia type and monitoring: regional spinal and standard monitoring Results Review: All pre-operative results and documents have been reviewed as part of the pre-operative evaluation. Informed Consent: The patient's anesthetic plan and its attendant risks and benefits were discussed with the patient/family/POA. Questions were solicited and answers provided to the satisfaction of the patient/family/POA.
[2023-12-07] MEDS: ceFAZolin 2 GM/D5W 50 ML 2 GM/50 ML BAG IVPB (12:03)
--- NOTE | 2023-12-07 13:03 | W.PM.OBCSD ---
OB - Delivery Note Procedure Delivery date: 12/07/23 Pre-op diagnosis: Previous Delivery and Other ( unwanted Fertility) Post-op Diagnosis: Same Procedure Performed: Primary and Other ( salpingectomy bilateral) Surgeon: Bobby Herzog MD Anesthesia type: Spinal Description of Procedure/Findings: The patient was taken the operating room.? She was prepped and draped in dorsal supine position with a leftward tilt.? This was done after spinal anesthetic was applied.? A low-transverse skin incision was made and carried down till of the fascia with the knife.? The fascial incision was made with the knife.? The fascial incision was extended laterally with Zabala scissors.? The fascia was tented upward superiorly and inferiorly the rectus muscles were dissected off bluntly.? The rectus muscles were the midline.? The preperitoneal fat and peritoneum were dissected open bluntly at the superior aspect of the rectus muscles.? The peritoneal incision was extended superior and inferior with good position of bladder.? The uterine incision was made with a scalpel down to the level of the amniotic cavity.? The amniotic cavity was entered bluntly.? The infant was delivered.? The cord was clamped and cut and the was handed off to waiting pediatric staff.? Cord bloods were obtained.? The placenta was removed manually.? The uterus was exteriorized.? The uterus was cleared of all clots, debris and membranes.? The uterus was closed in 0 Vicryl running lock fashion.? An imbricating over a was placed along the incision line as well.? salpingectomy was performed. Using LigaSure cautery the mesosalpinx was transected in stepwise fashion between the fallopian tube and rest of the adnexa. This was done to the level of the cornu of the uterus and then the tube was amputated. This was done in a bilateral fashion. The uterus was returned to the abdomen.? The gutters were cleared of all clots and debris.? The fascia was closed with 0 Vicryl running fashion.? The subcutaneous tissue was irrigated pinpoint bleeders were cauterized.? The skin was closed with subcuticular absorbable lucio.? Wound was covered with a wound Vacuum bandage..? The patient tolerated the procedure well.? She has taken recovery room in stable condition.? Sponge lap and needle counts were correct x2.? Specimen: No Estimated Blood Loss: 450
[2023-12-07] MEDS: OXYTOCIN 30 UNITS/NS 500 ML 30 UNITS/500 ML BAG 125 UNITS IV CONT (13:51)
[2023-12-07] MEDS: diphenhydrAMINE HCl INJ 50 MG/ML VIAL 25 MG IV PUSH (14:46)
--- NOTE | 2023-12-07 15:48 | OBPPTRN ---
Patient transferred to post room # 281 via stretcher. Support person present. Oriented to unit, room, information board, rooming in, admission packet and security measures. Patient verbalizes understanding.
[2023-12-07] MEDS: SIMETHICONE 80 MG TAB.CHEW PO (16:39)
[2023-12-07] MEDS: DOCUSATE SODIUM 100 MG CAPSULE PO (16:40)
[2023-12-07] MEDS: LIDOCAINE 5% PATCH 1 PATCH TRANSDERM (16:40)
[2023-12-07] MEDS: KETOROLAC 15 MG/ML VIAL (*BKC) IV PUSH ×2 (16:40→22:50)
[2023-12-07] MEDS: ACETAMINOPHEN 325 MG TABLET 650 MG PO ×2 (16:40→22:50)
[2023-12-07] MEDS: DEXTROSE 5%/0.45% SOD CHL 1,000 ML 125 ML IV CONT (20:00)
[2023-12-07] MEDS: SERTRALINE HCL 50 MG TABLET 100 MG PO (21:44)
[2023-12-08 01:24] VITALS: BP 102/58; PULSE 75; RESP 14; TEMP 37; O2SAT 98
[2023-12-08] MEDS: HYDROcodone/acetaminophen (*CRX) 5-325 MG TABLET 1 TAB PO ×2 (01:50→16:39)
[2023-12-08] MEDS: KETOROLAC 15 MG/ML VIAL (*BKC) IV PUSH (05:52)
[2023-12-08] MEDS: ACETAMINOPHEN 325 MG TABLET 650 MG PO ×3 (05:52→18:45)
[2023-12-08 07:15] VITALS: BP 114/74; PULSE 74; RESP 16; TEMP 36.8; O2SAT 100
--- NOTE | 2023-12-08 07:29 | PM.OBPNVD ---
OB - PN: Subj Subjective Date/time seen: 12/08/23 07:29 Interval history: pp day 1 voiding and passing flatus doing well OB - PN A/P Plan day: 1 Plan: routine care Time Spent With Patient Time: Total time spent is greater than 50% in coordination of care (as documented) at patient's floor/unit and/or counseling patient: Review of Systems Review of Systems: All systems reviewed & are unremarkable except as noted in HPI and below Exam Const: General: cooperative Resp: Effort & Inspection: normal respiratory effort Cardio: Rate: regular rate Rhythm: regular rhythm Skin: General skin exam: normal color Neuro: General: patient oriented x3
--- NOTE | 2023-12-08 09:50 | PC.NURSE ---
Communication board updated with RN information and telephone number. Assessed mothers needs related to and pumping. Mother is combo feeding and is currently using Similac formula. Breast pump was brought from home ([employer]) Pump was set up and explained to patient how to use the pump and clean the pump parts. Mother states that she received this pump from a yardsale. Reiterated that the pump parts need to be cleaned before first use. Galina dish doap supplied to parents for cleaning pump. Parents state understanding the importance of cleaning the used breast pump before first use and each time after. Mother is able to independently latch infant. is currently nursing on the left breast in cross cradle position. Mother denies pain with feeding. Instructed to call for assistance if infant goes 3 hours between feeds and if she needs any further assistance or has any questions. Primary RN updated.
[2023-12-08 10:17] LABS: Basophils Percent Auto 0.2 % (0.2-1.2); Eosinophils Absolute Auto 0.1 K/mm3 (0-0.3); Eosinophils Percent Auto 0.5 % (0-4.4); Hematocrit 33.5 % (37.0-47.0); Hemoglobin 11.2 g/dL (12.0-15.0); Immature Granulocyte Absolute 0.05 K/mm3 (0.00-0.031); Immature Granulocyte Percent A 0.4 % (0-0.5); Lymphocytes Absolute Auto 1.45 K/mm3 (0.9-3.2); Mean Corpuscular HGB Conc 33.4 g/dl (32-36); Mean Corpuscular Hemoglobin 30.4 pg (26-34); Mean Corpuscular Volume 90.8 fl (80-100); Mean Platelet Volume 9.1 fl (7.4-10.4); Monocytes Absolute Auto 0.6 K/mm3 (0.1-0.6); Monocytes Percent Auto 4.5 % (2.6-8.5); Neutrophils Percent Auto 83.4 % (45.5-73.1); Platelet Count Result 192 k/mm3 (150-375); Red Blood Count 3.69 M/mm3 (4.2-5.4); White Blood Count 13.2 K/mm3 (4.5-10.0)
--- NOTE | 2023-12-08 10:34 | WPDANLDPN2 ---
Anes-Prog Note L&D Date/Time: 12/08/23 10:34 Comfortable throughout: section Neuraxial method: spinal Epidural/Spinal procedure site: clean & non-tender Neuro status: Neuro function grossly intact. Cardiovascular status: normal Respiratory status: normal Airway patency: baseline Mental status: baseline Post-Op hydration status: normal Vital Signs: Last Vital Signs Temp 36.8 C 12/08/23 07:15 Pulse 74 12/08/23 07:15 Resp 16 12/08/23 07:15 BP 114/74 12/08/23 07:15 Pulse Ox 100 12/08/23 07:15 O2 Del Method Room Air 12/08/23 01:24 Pain score (VAS): 3/10 I/O: Intake & Output 12/07/23 12/08/23 12/08/23 23:59 07:59 15:59 Intake Total 1990 500 Output Total 3775 200 Balance -1785 300 Post-procedural complaints: none Patient feedback: Patient satisfied with anesthetic care.
--- NOTE | 2023-12-08 10:34 | WPDANLDNPN2 ---
Anes-Prog Note L&D-Neuraxial Date/Time: 12/08/23 10:34 Neuraxial medications: intrathecal PF morphine Opiod-related complaints: pruritis severe, treatment refractory Patient feedback: Patient satisfied with post-operative pain management.
[2023-12-08] MEDS: DOCUSATE SODIUM 100 MG CAPSULE PO ×2 (10:50→16:21)
[2023-12-08] MEDS: SIMETHICONE 80 MG TAB.CHEW PO ×3 (10:50→18:45)
[2023-12-08] MEDS: MULTIVIT/MIN/PREN/FOL AC/IRON TABLET 1 TAB PO (10:50)
[2023-12-08] MEDS: IBUPROFEN 600 MG TABLET PO ×2 (12:06→18:45)
[2023-12-08 12:28] VITALS: BP 121/71; PULSE 80; RESP 16; TEMP 37.3; O2SAT 100
[2023-12-08 12:30] LABS: Glucose Point of Care 73 mg/dl (65-105)
--- NOTE | 2023-12-08 14:21 | PC.NURSE ---
1405.Patient states her mother bought her a used medela pump at a yard sale and wants to know if it is safe to use the used pump parts. This RN explained that it is probably best not to use the used pump parts and instead will bring her a medela pump kit from the hospital supply. Measured mom's nipples with nipple measuring card, both nipples measured size 21mm. According to the medela handout for fitting pump flanges this mom should use size 27mm flange. Reviewed with mom how to use the pump and how long to pump for. handout given on how to properly store breastmilk. Mom knows to call this RN if she has more questions regarding or feeding baby.
--- NOTE | 2023-12-08 17:41 | PC.NURSE ---
1715. Mom called out for support to help with a latch. Mom reports baby has not eaten since noon, he took 40 cc of formula. She has been attempting to latch him since 1630. Baby was sleepy at the breast with no feeding cues. Baby put S2S, multiple attempts made to latch to the breast, infant reluctant to suck. Mom fed 4cc of formula then attempted to switch to the breast, and remained sleepy and reluctant. Mom encouraged to feed and retry to breastfeed at the next feeding.
[2023-12-08 18:45] VITALS: BP 132/59; PULSE 86; RESP 18; TEMP 36.6; O2SAT 99
[2023-12-08] MEDS: SERTRALINE HCL 50 MG TABLET 100 MG PO (20:50)
[2023-12-08] MEDS: LIDOCAINE 5% PATCH 1 PATCH TRANSDERM (20:50)
[2023-12-08] MEDS: HYDROcodone/acetaminophen (*CRX) 10-325 MG TABLET 1 TAB PO (22:00)
[2023-12-09] MEDS: HYDROcodone/acetaminophen (*CRX) 5-325 MG TABLET 1 TAB PO ×5 (01:05→23:57)
[2023-12-09] MEDS: IBUPROFEN 600 MG TABLET PO ×4 (01:05→20:50)
[2023-12-09] MEDS: ACETAMINOPHEN 325 MG TABLET 650 MG PO ×4 (01:05→20:50)
[2023-12-09] MEDS: SIMETHICONE 80 MG TAB.CHEW PO ×3 (07:55→16:55)
[2023-12-09] MEDS: MULTIVIT/MIN/PREN/FOL AC/IRON TABLET 1 TAB PO (07:56)
[2023-12-09] MEDS: DOCUSATE SODIUM 100 MG CAPSULE PO ×2 (07:56→16:56)
[2023-12-09 08:00] VITALS: BP 121/60; PULSE 70; RESP 18; TEMP 36.4; O2SAT 100
--- NOTE | 2023-12-09 08:46 | PM.OBPNVD ---
OB - PN: Subj Subjective Date/time seen: 12/09/23 08:46 Interval history: pp day 2 voiding and passing flatus doing well baby OB - PN: Obj Data Labs 12/08/23 10:11 Labs: Laboratory Results - last 24 hr 12/07/23 12/08/23 11:02 10:11 WBC 13.2 H RBC 3.69 L Hgb 11.2 L Hct 33.5 L MCV 90.8 MCH 30.4 MCHC 33.4 RDW 15.0 H Plt Count 192 MPV 9.1 Immature Gran % (Auto) 0.4 Neut % (Auto) 83.4 H Lymph % (Auto) 11.0 L [place] % (Auto) 4.5 Eos % (Auto) 0.5 Baso % (Auto) 0.2 Lymph # (Auto) 1.45 [place] # (Auto) 0.6 Eos # (Auto) 0.1 Baso # (Auto) 0.0 Abs Immat Gran (auto) 0.05 H Absolute Neuts (auto) 11.0 H Absolute Nucleated RBC 0.000 Nucleated RBC % 0.0 POC Capillary Glucose 73 OB - PN A/P Plan day: 2 Time Spent With Patient Time: Total time spent is greater than 50% in coordination of care (as documented) at patient's floor/unit and/or counseling patient: Exam Const: General: cooperative and healthy appearing GI: Other: incision cdi
--- NOTE | 2023-12-09 10:50 | PC.NURSE ---
Introductions were made, then consulted with patient to assess needs related to . Mother led the conversation with her?plans to feed?her infant and the?experience so far. Mother states infant is feeding better through the night. She has a hospital Medela pump and is using a 27mm flange. Encouraged regular pumping if infant doesn't breastfeed well. Parents are supplementing with formula. Mother says latch is not painful. Will call out for a latch check today. Name and number written on the communication board. Parents voiced understanding of information, demonstrated learning and will call if there is a request for assistance. Reported to the Primary RN.
--- NOTE | 2023-12-09 14:00 | PC.NURSE ---
1150- Mom called out for assistance. Infant is very sleepy and it has been less than three hours since the last feeding with breast/formula. Encouraged mother to wait another half to 1 hour and try again. 1400- Patient called phone for feeding assistance. Mother had to the breast when RN entered room, but was sleeping and not latched. Baby was removed from mother and undressed to awaken him. Discussed with mom how 37 week infants can sometimes be very sleepy and not nurse as effectively as a full term infant. She states that her second child was exclusively breastfed. We tried again to latch baby and he was rooting and eager. Mom has a flat nipple on the left breast that does phuong some with stimulation. Baby was unable to latch, even when we attempted to use a sandwich hold. Mom was feeding in cradle position on the left breast. Mom doesn't support her breast as effectively as she may need to to facilitate an appropriate latch, she was shown how to compress the tissue for a better bite . Baby ceased rooting and opening his mouth after just a few minutes and we were unable to have a successful . Encouraged mother to move to pumping and supplementing at this time, and start again with attempting at breast at the next feeding. Mother agrees with this plan to attempt/pump/bottle feed. We also reviewed that infants should have 8-12 breastfeedings in each 24 hour period, and that watching the clock for a specific feeding schedule is not feasible at this stage; responsive feeding is best. Infant was circumcised today which may increase sleepiness. Discussed with mother what the overnight feedings looked like and she states that would not maintain a latch and would only suck a few times every few minutes. Mother needs to continue to work toward keeping infant awake and maintaining the latch, while still following the feeding plan in place. Encouraged mother to call for assistance at future feedings. Mother verbalizes understanding of the information shared. Reported to Primary RN.
[2023-12-09 20:50] VITALS: BP 119/64; PULSE 82; RESP 18; TEMP 36.6
[2023-12-09] MEDS: SERTRALINE HCL 50 MG TABLET 100 MG PO (20:50)
[2023-12-09] MEDS: LIDOCAINE 5% PATCH 1 PATCH TRANSDERM (20:50)
[2023-12-10] MEDS: IBUPROFEN 600 MG TABLET PO ×2 (03:05→09:05)
[2023-12-10] MEDS: ACETAMINOPHEN 325 MG TABLET 650 MG PO ×2 (03:05→09:06)
[2023-12-10] MEDS: MULTIVIT/MIN/PREN/FOL AC/IRON TABLET 1 TAB PO (09:06)
[2023-12-10] MEDS: SIMETHICONE 80 MG TAB.CHEW PO ×2 (09:07→11:55)
[2023-12-10] MEDS: DOCUSATE SODIUM 100 MG CAPSULE PO (09:07)
[2023-12-10 09:22] VITALS: BP 138/86; PULSE 72; RESP 18; TEMP 36.7; O2SAT 99
--- NOTE | 2023-12-10 09:36 | PM.OBPNVD ---
OB - PN: Subj Subjective Date/time seen: 12/10/23 09:36 Interval history: pp day voiding and passing flatus doing well baby desires d/c home OB - PN: Obj Data Labs 12/08/23 10:11 OB - PN A/P Plan day: 3 Plan: routine care and discharge home Time Spent With Patient Time: Total time spent is greater than 50% in coordination of care (as documented) at patient's floor/unit and/or counseling patient: Review of Systems Review of Systems: All systems reviewed & are unremarkable except as noted in HPI and below Exam Const: General: cooperative and healthy appearing Resp: Effort & Inspection: normal respiratory effort Cardio: Rate: regular rate GI: Other: incision cdi
--- NOTE | 2023-12-10 09:40 | PM.OBDSVD ---
DS: Admitting Diagnosis Discharge Date 12/10/23 Admitting Diagnosis section DS: Discharge Diagnosis Discharge Diagnosis (1) delivery delivered: Code(s): O82 - Encounter for delivery without indication Status: Acute OB - DS: Summary OB Procedures : None OB Procedures Intrapartum: OB Procedures: : None Peripartum Data Procedures: Procedures Operation Date: 12/07/23 12:00 Actual Procedure Side Surgeon p Repeat Section Bobby Herzog MD Time Spent with Patient Time attestation: Total time spent providing and/or coordinating discharge services: Discharge Plan Discharge Attending physician on discharge: Bobby Herzog Discharging Clinician: Linda Meyer Patient Disposition: Home, Self-Care Activity: pelvic rest Diet: regular Patient Instructions: Antibiotic Form Stand Alone Forms: General Discharge Information Follow-up/Referrals: Bobby Herzog MD [Physician] - 1 Week Discharge Medications: New hydrocodone-acetaminophen 5-325 mg Tablet 1 tablet PO Q3H PRN (Reason: Breakthrough Pain Rated 4-6) 7 Days Qty: 25 0RF Continued sertraline 100 mg tablet 100 mg PO HS PNV cmb#95-ferrous fumarate-FA [] 28 mg iron- 800 mcg Tablet 1 tablet PO DAILY Discontinued omeprazole 40 mg Capsule,Delayed Release(Dr/Ec) 40 mg PO DAILY acetaminophen 500 mg tablet 1,000 mg PO Q6H PRN (Reason: Pain) aspirin 81 mg Tablet,Chewable 81 mg PO DAILY magnesium 200 mg Tablet 200 mg PO DAILY Humulin N NPH Insulin KwikPen 100 unit/mL (3 mL) insulin pen 5 unit SUBCUT BID Rx Instructions: Before breakfast and before bed Date of admission: 12/07/23 10:03 Primary Care Provider: UNKNOWN,DOCTOR Admitting Provider: Marcelino Tate Attending physician on admission: Marcelino Tate Condition: Stable
[2023-12-10] MEDS: HYDROcodone/acetaminophen (*CRX) 5-325 MG TABLET 1 TAB PO (11:54)
== END 2023-12-10 13:20 | disposition home or self-care (01) | DRG 785 ==
LOC: ANHOB2 12-10 09:40 → ANHLDR 12-13 06:20
PROVIDERS: Obstetrics & Gynecology; Admitting Provider Obstetrics & Gynecology; Visit Provider Obstetrics & Gynecology
PROC: 10D00Z1 Extraction of Products of Conception, Low, Open Approach (ICD-10-PCS; CPT 59514; principal; 2023-12-07 12:00)
DX: O34.219 Maternal care for unspecified type scar from previous cesarean delivery (principal); Z30.2 Encounter for sterilization; O24.424 Gestational diabetes mellitus in childbirth, insulin controlled; O13.4 Gestational [pregnancy-induced] hypertension without significant proteinuria, complicating childbirth; Z3A.37 37 weeks gestation of pregnancy; Z37.0 Single live birth; Z79.82 Long term (current) use of aspirin; Z79.4 Long term (current) use of insulin; Z88.0 Allergy status to penicillin
CPT/HCPCS: 36415; 82948; 85025; 88302; A9270; J0690; J1200; J1885; J2274; J2371; J2405; J2590; J7120